=== PATIENT | male | born 2000 | race African-American/Black ===

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

== ENCOUNTER 2020-09-23 12:09 | Emergency (ER) | payer SELFPAY ==
[2020-09-23] MEDS ORDERED: HYDROcodone/Acetaminophen 10/325 mg Tablet ONE (12:26)
[2020-09-23] MEDS ORDERED: Boostrix 0.5 ML (Tdap) VIAL ONE (13:12)
[2020-09-23] MEDS ORDERED: Lidocaine 1% 20 ML MDV ONE (13:12)
== END 2020-09-23 14:00 | disposition home or self-care (01) ==
LOC: MADERS 12:09
DX: S61.212A Laceration without foreign body of right middle finger without damage to nail, initial encounter (principal); J45.909 Unspecified asthma, uncomplicated; W45.8XXA Other foreign body or object entering through skin, initial encounter
CPT/HCPCS: 12004; 90471; 90715

== ENCOUNTER 2021-10-24 22:24 | Emergency (ER) | payer OTHER, SELFPAY ==
[2021-10-24 23:44] LABS: #Basophils 0.1 thou/uL (0.0-0.2); #Eosinphils 0.1 thou/uL (0.0-0.7); #Lymphocytes 2.5 thou/uL (1.20-3.40); #Monocytes 0.9 thou/uL (0.11-0.59); #Neutrophils 4.6 thou/uL (1.40-6.50); %Basophils 1.1 % (0.0-1.0); %Eosinophils 1.4 % (0.0-10.0); %Lymphocytes 30.4 % (21.0-51.0); %Monocytes 10.7 % (0.0-10.0); %Neutrophils 56.4 % (42.0-75.0); Hemoglobin 13.2 g/dL (14.0-18.0); Mean Corpuscular HGB CONC 32.6 g/dL (32.0-36.0); Mean Corpuscular Hemoglobin 27.9 pg (27.0-31.0); Mean Corpuscular Volume 85.5 fL (78.0-98.0); Mean Platelet Volume 10.1 fL (7.4-10.4); Platelet Count 224 thou/uL (130-400); RBC Distribution Width 11.8 % (11.5-14.5); Red Blood Cell (RBC) Count 4.74 mill/uL (4.70-6.10); White Blood Cell (WBC) Count 8.2 thou/uL (4.8-10.8)
[2021-10-25 00:05] LABS: CKMB 0.8 ng/mL (0-6.6); Troponin I Less than 0.010 ng/mL (< 0.028)
[2021-10-25 00:11] LABS: ALT (SGPT) 14 U/L (8-55); AST (SGOT) 17 U/L (5-34); Albumin 4.6 g/dL (3.5-5.0); Alkaline Phosphatase 65 U/L (40-110); Anion Gap 15 mmol/L (10-20); BUN (Urea Nitrogen) 11 mg/dL (8.9-20.6); Bilirubin, Total 0.8 mg/dL (0.2-1.2); CK (CPK) 245 U/L (30-200); Calc. Creatinine Clearance 0 mL/min (70-130); Calcium 9.1 mg/dL (7.8-10.44); Carbon Dioxide 21 mmol/L (22-29); Chloride 107 mmol/L (98-107); Estimated GFR 133; Globulin 2.9 g/dL (2.4-3.5); Glucose 87 mg/dL (70-105); Potassium 3.9 mmol/L (3.5-5.1); Protein, Total 7.5 g/dL (6.0-8.3); Sodium 139 mmol/L (136-145)
== END 2021-10-25 01:02 | disposition home or self-care (01) ==
LOC: MADERS 22:24
DX: E86.0 Dehydration (principal); R07.89 Other chest pain
CPT/HCPCS: 71045; 80053; 82550; 82553; 84484; 85025; 85379; 93005

== ENCOUNTER 2021-11-12 20:51 | Emergency (ER) | payer SELFPAY ==
[2021-11-12] MEDS ORDERED: Ondansetron ODT 4 MG TAB ONE (21:16)
== END 2021-11-12 22:04 | disposition home or self-care (01) ==
LOC: MADERS 20:51
DX: K52.9 Noninfective gastroenteritis and colitis, unspecified (principal)
CPT/HCPCS: 99283; Q0162

== ENCOUNTER 2022-05-19 11:02 | Emergency (ER) | payer BC, SELFPAY ==
[2022-05-19] MEDS ORDERED: predniSONE 20 MG TAB ONE (11:35)
== END 2022-05-19 11:39 | disposition home or self-care (01) ==
LOC: MADERS 11:02
DX: J02.9 Acute pharyngitis, unspecified (principal)
CPT/HCPCS: 99283; J7512

== ENCOUNTER 2023-03-25 18:27 | Emergency (ER) | payer BC, SELFPAY | END 2023-03-25 20:23 | disposition home or self-care (01) | LOC: MADERS 18:27 | DX: R05.9 Cough, unspecified (principal); R09.81 Nasal congestion | CPT/HCPCS: 87804; 99283 ==

== ENCOUNTER 2024-03-13 19:41 | Emergency (ER) | payer SELFPAY ==
[2024-03-13] MEDS ORDERED: Ibuprofen 800 MG TAB ONE (20:34)
[2024-03-13] MEDS ORDERED: Amoxicillin/Potassium Clav 875 MG TAB ONE (20:34)
== END 2024-03-13 20:45 | disposition home or self-care (01) ==
LOC: MADERS 19:41
DX: H65.91 Unspecified nonsuppurative otitis media, right ear (principal)
CPT/HCPCS: 99282